=== PATIENT | male | born 2005 | race Hispanic/Latino ===

== ENCOUNTER 2024-11-12 10:13 | Emergency (ER) | payer MEDICAID, SELFPAY ==
[2024-11-12] VITALS (8 sets, daily range): BP systolic 118–168; BP diastolic 71–86; PULSE 71–97; RESP 12–18; TEMP 36.6; O2SAT 98–100
--- NOTE | ~2024-11-12 | XR_ITS ---
EXAM/PROCEDURE: XR chest 2V - 11/12/2024 11:32 CDT HISTORY: 18 years old Male with cp, PT STATES LT SIDE CHEST PAIN TECHNIQUE: Two view(s) of the chest. COMPARISON: None available. FINDINGS: LUNGS/ PLEURA: No focal consolidation. No appreciable pneumothorax or large pleural effusion. HEART/ MEDIASTINUM: Heart appears normal in size. BONES: No acute osseous abnormality. OTHER: Visualized upper abdomen is unremarkable. IMPRESSION: No acute process. Reviewed, dictated and finalized at location A. IMPRESSION: No acute process.
--- NOTE | 2024-11-12 10:14 | ECG_ITS ---
Test Date: 2024-11-12 10:28:01 Measurements Intervals [place] Rate: 87 P: 55 [place]: 171 QRS: 34 QRSD: 97 T: 25 QT: 355 QTc: 428 Interpretive Statements SINUS RHYTHM NONSPECIFIC ST ELEVATION IN DIFFUSE LEADS BORDERLINE ECG No previous ECG available for comparison Electronically Signed On 11-12-2024 10:41:20 CDT by Arnol Ornelas D.O.
[2024-11-12 10:42] LABS: Basophils Percent Auto 0.3 % (0.2-1.2); Eosinophils Absolute Auto 0.1 K/mm3 (0-0.3); Eosinophils Percent Auto 1.3 % (0-4.4); Hematocrit 49.4 % (42.0-52.0); Hemoglobin 16.5 g/dL (14.0-18.0); Immature Granulocyte Absolute 0.02 K/mm3 (0.00-0.031); Immature Granulocyte Percent A 0.3 % (0-0.5); Lymphocytes Absolute Auto 2.45 K/mm3 (0.9-3.2); Lymphocytes Percent Auto 40.1 % (18.3-44.2); Mean Corpuscular HGB Conc 33.4 g/dl (32-36); Mean Corpuscular Hemoglobin 30.3 pg (26-34); Mean Corpuscular Volume 90.6 fl (80-100); Mean Platelet Volume 10.1 fl (7.4-10.4); Monocytes Absolute Auto 0.6 K/mm3 (0.1-0.6); Monocytes Percent Auto 9.5 % (2.6-8.5); Neutrophils Percent Auto 48.5 % (45.5-73.1); Platelet Count Result 231 k/mm3 (150-375); Red Blood Count 5.45 M/mm3 (4.6-6.20); Red Cell Distribution Width 12.6 % (11.5-14.5); White Blood Count 6.1 K/mm3 (4.5-10.0)
[2024-11-12 10:55] LABS: Partial Thromboplastin Time 26.2 Seconds (22.3-36.8); Prothrombin Time 13.1 Seconds (11.1-14.7)
[2024-11-12 11:01] LABS: Alanine Aminotransferase 77 U/L (6-50); Albumin Level 4.7 g/dL (3.5-5.1); Alkaline Phosphatase 81 U/L (38-126); Anion Gap 9 mmol/L (4-12); Aspartate Amino Transferase 57 U/L (17-59); Bilirubin,Total 0.9 mg/dL (0.2-1.3); Blood Urea Nitrogen 15 mg/dL (9-20); Calcium 9.8 mg/dL (8.4-10.2); Carbon Dioxide 28 mmol/L (22-30); Chloride 103 mmol/L (98-107); Estimated CRCL calculation 102 ml/min; Estimated Glomerular Filt Rate > 60; Glucose 101 mg/dL (65-110); Lipase 49 U/L (23-300); Potassium 3.8 mmol/L (3.4-5.0); Sodium 140 mmol/L (137-145); Total Protein 8.4 g/dL (6.3-8.2)
[2024-11-12 11:12] LABS: Troponin I < 0.012 ng/mL (0.000-0.034)
--- NOTE | 2024-11-12 11:12 | PC.NURSE ---
Pt called 2 times for x-ray, no answer.
[2024-11-12 13:36] LABS: D Dimer < 0.27 ug/mL (<0.48)
--- NOTE | 2024-11-12 13:36 | ECG_ITS ---
Test Date: 2024-11-12 13:44:23 Measurements Intervals [place] Rate: 95 P: 54 [place]: 161 QRS: 45 QRSD: 92 T: 23 QT: 347 QTc: 436 Interpretive Statements SINUS RHYTHM NORMAL ECG Compared to ECG 11/12/2024 10:28:01 NO SIGNIFICANT CHANGE Electronically Signed On 11-12-2024 14:16:17 CDT by Arnol Ornelas D.O.
--- NOTE | 2024-11-12 13:36 | ED.CHESTPAIN ---
HPI - Chest Pain General Chief Complaint: Chest Pain Stated Complaint: chest pain, shortness of breath Time Seen by Provider: 11/12/24 12:02 Source: patient and RN notes reviewed Mode of arrival: ambulatory Limitations: no limitations History of Present Illness HPI narrative: This is a 18 year old male who presents for evaluation of palpitations and chest pain. He states that he has been having intermittent episodes of chest pain and palpitations for 1.5 weeks. HE reports he feels buzzing in his chest intermittently. He will also experience mid chest pain lasting a few seconds. He reports there is not exacerbating cause. HE also reports intermittent episodes of shortness of breath. He reports increased stressed and he thinks it may be causing his symptoms. He denies URI symptoms, cough, fever, calf pain. Denies travel. MD complaint: chest pain Onset (ago): week(s) Timing of current episode: episodic Onset: during rest Pain radiation: none Severity: mild Relieving factors: nothing Exacerbating factors: nothing Treatment prior to arrival: none Risk Factors Coronary artery disease risk factors: none Thoracic aortic dissection risk factors: none Related Data Allergies Allergy/AdvReac Type Severity Reaction Status Date / Time No Known Allergies Allergy Verified 11/12/24 11:22 [facility] Past Medical History Medical History (Updated 11/12/24 @ 14:14 by Jaclyn Grier MD) Patient denies medical problems Surgical History Surgical History (Updated 11/12/24 @ 13:40 by Jaclyn Grier MD) No pertinent past surgical history Social History Social History (Updated 11/12/24 @ 13:40 by Jaclyn Grier MD) Smoking status: Never smoker Alcohol intake: never Substance use: never Exam Const: General: no acute distress and alert Nutritional Appearance: well nourished Orientation/consciousness: patient oriented x3 HENMT: Head: normal to inspection Eyes: EOM: EOMs intact bilaterally Chest: Chest palpation & inspection: normal inspection of the chest and no tenderness Resp: Effort & Inspection: normal respiratory effort Auscultation: clear to auscultation bilaterally Cardio: Rate: regular rate Rhythm: regular rhythm Heart sounds: no murmurs GI: GI Palp: Yes Soft to palpation, No Tenderness to palpation present (GI), No Guarding due to palpation present (GI) and No Rigid due to palpation Auscultation: normal bowel sounds Skin: General skin exam: normal color Rashes: no rashes Wounds: no wounds Neuro: General: patient oriented x3, moves all extremities and CN's II-XI intact bilaterally Extrem: General: normal to inspection, no clubbing, cyanosis or edema and no pedal edema Psych: Mental Status: mental status grossly normal Affect: normal affect Attitude: cooperative Course Reevaluation(s) Reevaluation #1: I discussed with patient that labs are unremarkable. His chest pain may be due to his anxiety. I prescribed vistaril. I did consider pericarditis but no fever, no URI symptoms, no pericardial rub, no elevated wbc. He was given return precautions and will follow up with PCP Date: 11/12/24 Time: 13:30 Vital Signs Vital signs: Vital Signs Temperature 97.9 F 11/12/24 10:35 Pulse Rate 78 11/12/24 10:35 Respiratory Rate 16 11/12/24 10:35 Blood Pressure 157/82 H 11/12/24 10:35 Pulse Oximetry 100 11/12/24 10:35 Oxygen Delivery Room Air 11/12/24 10:35 Temperature 97.9 F 11/12/24 14:00 Pulse Rate 82 11/12/24 14:00 Respiratory Rate 18 11/12/24 14:00 Blood Pressure 134/86 11/12/24 14:00 Pulse Oximetry 100 11/12/24 14:00 Oxygen Delivery Room Air 11/12/24 11:19 MDM - Chest Pain Differential Diagnosis Differential diagnosis: Likely atypical chest pain, costochondritis, chest pain and biliary colic Lab Data Attestation: I reviewed the patient's lab results. 11/12/24 10:37 11/12/24 10:37 Labs: Lab Results 11/12/24 11/12/24 Range/Units 10:37 13:42 WBC 6.1 (4.5-10.0) K/mm3 RBC 5.45 (4.6-6.20) M/mm3 Hgb 16.5 (14.0-18.0) g/dL Hct 49.4 (42.0-52.0) % MCV 90.6 (80-100) fl MCH 30.3 (26-34) pg MCHC 33.4 (32-36) g/dl RDW 12.6 (11.5-14.5) % Plt Count 231 (150-375) k/mm3 MPV 10.1 (7.4-10.4) fl Immature Gran % (Auto) 0.3 (0-0.5) % Neut % (Auto) 48.5 (45.5-73.1) % Lymph % (Auto) 40.1 (18.3-44.2) % Garfield % (Auto) 9.5 H (2.6-8.5) % Eos % (Auto) 1.3 (0-4.4) % Baso % (Auto) 0.3 (0.2-1.2) % Lymph # (Auto) 2.45 (0.9-3.2) K/mm3 Garfield # (Auto) 0.6 (0.1-0.6) K/mm3 Eos # (Auto) 0.1 (0-0.3) K/mm3 Baso # (Auto) 0.0 (0.0-0.1) K/mm3 Abs Immat Gran (auto) 0.02 (0.00-0.031) K/mm3 Absolute Neuts (auto) 3.0 (1.3-6.7) K/mm3 Absolute Nucleated RBC 0.000 (0.0-0.012) K/mm3 Nucleated RBC % 0.0 (0.0-0.2) % PT 13.1 (11.1-14.7) Seconds INR 1.0 APTT 26.2 (22.3-36.8) Seconds D-Dimer < 0.27 (<0.48) ug/mL Sodium 140 (137-145) mmol/L Potassium 3.8 (3.4-5.0) mmol/L Chloride 103 (98-107) mmol/L Carbon Dioxide 28 (22-30) mmol/L Anion Gap 9 (4-12) mmol/L BUN 15 (9-20) mg/dL Creatinine 1.23 (0.7-1.3) mg/dL Estim Creat Clear Calc 102 ml/min Estimated GFR > 60 (59 - ) Glucose 101 (65-110) mg/dL Calcium 9.8 (8.4-10.2) mg/dL Total Bilirubin 0.9 (0.2-1.3) mg/dL AST 57 (17-59) U/L ALT 77 H (6-50) U/L Alkaline Phosphatase 81 (38-126) U/L Troponin I < 0.012 < 0.012 (0.000-0.034) ng/mL Total Protein 8.4 H (6.3-8.2) g/dL Albumin 4.7 (3.5-5.1) g/dL Lipase 49 (23-300) U/L ECG Data EKG #1: Attestation: I personally reviewed and interpreted this ECG as follows: ECG completion date: 11/12/24 ECG completion time: 10:28 Interpretation: mild j point elevation, no STEMI EKG Interpretation: normal rate, sinus rhythm and NL axis Discharge Plan Discharge Clinical Impression: Atypical chest pain Patient Disposition: Home Condition: Stable Instructions: Antibiotic Form, Chest Pain (ED) Additional Instructions: Today your lab test were unremarkable. I recommend that you follow up with your primary care provider. I have prescribed a medication for anxiety that you can try. You can also take ibuprofen 400 mg every 6 hours as needed for your pain. REturn to ER if your symptoms worsen. Patient Language: Cypriot Prescriptions: New hydroxyzine pamoate 50 mg capsule 50 mg PO BID PRN (Reason: anxiety) Qty: 10 0RF Follow-up/Referrals: PHYSICIAN,TOLL LINE INSPECTOR [Primary Care Provider] - George Sage MD [Physician] - Quality HEART score for chest pain patients History: slightly suspicious ECG: normal Age: < or = to 45 years Risk factors: no risk factors known Troponin: < or = to 1x normal limit Heart score: 0
[2024-11-12 14:13] LABS: Troponin I < 0.012 ng/mL (0.000-0.034)
== END 2024-11-12 14:28 | disposition home or self-care (01) ==
PROVIDERS: Emergency Medicine; Emergency Provider General Practice
DX: R07.89 Other chest pain (principal); R94.31 Abnormal electrocardiogram [ECG] [EKG]
CPT/HCPCS: 36415; 71046; 80053; 83690; 84484; 85025; 85380; 85610; 85730; 93005; 99284

== ENCOUNTER 2024-12-03 08:55 | Outpatient (CLI) | payer MEDICAID, SELFPAY ==
--- OUTSIDE RECORDS SUMMARY | 2024-12-03 09:00 | XMS_ITS | Clinical Summary ---
Author Organization [facility] Address [address] [place] [address] Care Team Providers Care [place]audeville Actor Name Role Phone James Hall MD Primary Care Provider [phone] Source Comments [facility],non-owned Affiliates and Associated Physician Practices is amultiple site organization consisting of ambulatory clinics and hospital sitesin [place], [place], [place] and [place]. This disclosure is being madepursuant to the Care Everywhere program and may not contain all information available regarding this patient. Last updated 18.[facility] Allergies No known active allergies Medications * Be aware that medications may not be up to date on this document. Alwaysverify current medications with the patient. No known medications Social History Tobacco Use Types Packs/Day Years Used Date Smoking Tobacco: Never Smokeless Tobacco: Never Sex and Gender Information Value Date Recorded Sex Assigned at Not on file Legal Sex Male 1:18 PM CDT Gender Identity Not on file Sexual Orientation Not on file Last Filed Vital Signs Vital Sign Reading Time Taken Comments Blood Pressure 122/80 02/28/2018 12:40 PM CDT Pulse 98 02/28/2018 12:40 PM CDT Temperature 36.9 C (98.5 F) 02/28/2018 12:40 PM CDT Respiratory Rate 19 02/28/2018 12:40 PM CDT Oxygen Saturation 98% 02/28/2018 12:40 PM CDT Inhaled Oxygen Concentration - - Weight 80.7 kg (178 lb) 02/28/2018 12:40 PM CDT Height 160 cm (5' 3) 02/28/2018 12:40 PM CDT Body Mass Index 31.53 02/28/2018 12:40 PM CDT Plan of Treatment Health Maintenance Due Date Last Done Comments HIV SCREENING 12/30/2018 HPV VACCINE (1 - Male 3-dose series) 12/30/2018 MENINGOCOCCAL (Group B) VACC INE SHARED DECISION-MAKING (1 of 2 - Standard) 2019 HEPATITIS C SCREENING 12/26/2021 DTAP/TDAP/TD VACCINES (1 - Tdap) 12/30/2022 HEPATITIS B VACCINE (1 of 3 - 19+ 3-dose series) 12/30/2022 COVID-19 VACCINE (1 - 2023-2 5 season) 2024 DEPRESSION SCREENING 05/19/2024 INFLUENZA VACCINE (#1) 2025 ZOSTER VACCINE (1 of 2) 12/30/2053 HIB VACCINE Aged Out No longer eligi ble based on patient's age to complete this topic MENINGOCOCCAL GROUPS A/C/Y/W VACCINE Aged Out No longer eligible b ased on patient's age to complete this topic PNEUMOCOCCAL VACCINE Aged Out No long er eligible based on patient's age to complete this topic Care Teams [place] Actor Relationship Specialty Start Date End Date James Hall MD [address] [place] [address] [address] [place] [address] PCP - General Family Medicine 10/18/13
[2024-12-03 10:35] LABS: Alanine Aminotransferase 66 U/L (6-50); Albumin Level 4.6 g/dL (3.5-5.1); Alkaline Phosphatase 72 U/L (38-126); Aspartate Amino Transferase 47 U/L (17-59); Bilirubin,Total 0.8 mg/dL (0.2-1.3); Cholesterol 206 mg/dL (0-200); HDL Direct 42 mg/dL; Hemoglobin A1C 5.4 % (<5.7); Total Protein 8.2 g/dL (6.3-8.2); Triglycerides 127 mg/dL (<150)
[2024-12-03 11:10] LABS: Thyroid Stimulating Hormone Reflex 1.710 uIU/mL (0.465-4.68)
== END 2024-12-03 08:56 | disposition home or self-care (01) ==
PROVIDERS: PCP Nurse Practitioner Family; Visit Provider Nurse Practitioner Family
DX: Z00.00 Encounter for general adult medical examination without abnormal findings (principal); Z13.220 Encounter for screening for lipoid disorders; Z76.89 Persons encountering health services in other specified circumstances; F41.9 Anxiety disorder, unspecified; E66.9 Obesity, unspecified; R74.01 Elevation of levels of liver transaminase levels; M79.602 Pain in left arm; M94.0 Chondrocostal junction syndrome [Tietze]; G47.00 Insomnia, unspecified; Z83.49 Family history of other endocrine, nutritional and metabolic diseases
CPT/HCPCS: 36415; 80061; 80076; 83036; 84443

== ENCOUNTER 2025-03-09 14:48 | Outpatient (CLI) | payer OTHER, SELFPAY ==
--- OUTSIDE RECORDS SUMMARY | 2009-03-15 03:15 | XMS_ITS | Continuity of Care Document ---
Author Organization [facility] Address [address] [place] [address] Phone Care Team Providers Care Hvac/R Instructor Name Role Phone Beck OD, Phani Unavailable Unavailable Procedures Procedure Date Eye Exam, New Patient Refraction Advance Directives Directive Yes / No Effective Date File Name No Information Encounters Encounter Description Practice Location Reason(s) For Visit Diagnoses Date Provider Providers Copied on Encounter [facility], [address], [place], [place], [id number], [place] tel:[phone] [address] [facility] No Information 8-200 9 Beck OD Phani. [address] , [address], [place], [address], [place]. tel:[phone] Family History Family Member Type Diagnosis Age At Onset No Information Payers Payer name Insurance type Covered constitution party ID Authoriza tion(s) Medicaid [facility] [id number] Social History Type Description Quantity Date Captured Comments Sex Male Smoking Status No Information Chief Complaint And Reason For Visit No Information Reason For Referral Reason For Referral No Information History Of Present Illness Encounter Date Complaint History Of Prese nt Illness No Information Functional Status Date Functional Assessmen t No Information Instructions Date Instruction Additional Infor mation No Information Assessments Type Assessment Date No Information Patient Care Teams Name Effective Dates (start - stop) Status Members No Information
--- NOTE | ~2025-03-09 | MR_ITS ---
EXAMINATION: MR brain/brain stem wo con DATE: 03/09/2025 16:17 INDICATION: Headache, unspecified. TECHNIQUE: Magnetic resonance imaging (MRI) of the brain and brainstem was performed without intravenous contrast. COMPARISON: None. FINDINGS: There is no intracranial hemorrhage, acute infarction, or abnormal intracranial mass lesion. The ventricles are normal in size. There is mucosal thickening in the paranasal sinuses. The orbits are normal. The mastoid air cells are normal. IMPRESSION: 1. Normal brain. Reviewed, dictated and finalized at location E. IMPRESSION: 1. Normal brain.
--- OUTSIDE RECORDS SUMMARY | 2025-03-09 19:03 | XMS_ITS | Clinical Summary ---
Author Organization [facility] Address [address] [place] [address] Care Team Providers Care Stacker Tender Name Role Phone James Hall MD Primary Care Provider [phone] Source Comments [facility],non-owned Affiliates and Associated Physician Practices is amultiple site organization consisting of ambulatory clinics and hospital sitesin [place], [place], [place] and [place]. This disclosure is being madepursuant to the Care Everywhere program and may not contain all information available regarding this patient. Last updated 18.[facility] Allergies No known active allergies Medications * [...] of 3 - 19+ 3-dose series) 12/30/2022 DEPRESSION SCREENING 05/19/2024 COVID-19 VACCINE (1 - 2023-2 5 season) 2025 INFLUENZA VACCINE (#1) 2025 ZOSTER VACCINE (1 of 2) 12/30/2053 HIB VACCINE Aged Out No longer eligi ble based on patient's age to complete this topic MENINGOCOCCAL GROUPS A/C/Y/W VACCINE Aged Out No longer eligible b ased on patient's age to complete this topic PNEUMOCOCCAL VACCINE Aged Out No long er eligible based on patient's age to complete this topic Care Teams Stacker Tender Relationship Specialty Start Date End Date James Hall MD [address] [place] [address] [address] [place] [address] PCP - General Family Medicine 10/18/13
== END 2025-03-09 14:49 | disposition home or self-care (01) ==
PROVIDERS: PCP Nurse Practitioner Family; Visit Provider Nurse Practitioner Family
DX: R51.9 Headache, unspecified (principal); R20.2 Paresthesia of skin; R26.89 Other abnormalities of gait and mobility
CPT/HCPCS: 70551

== ENCOUNTER 2025-04-08 10:00 | Outpatient (CLI) | payer OTHER, SELFPAY ==
--- NOTE | ~2025-04-08 | US_ITS ---
US abdomen limited Indication: R10.32 - Left lower quadrant pain Comparison: None Technique: Browning-scale and color Doppler images were obtained. Findings: Correlating with the palpable area there is no abnormal mass or mass effect, there is no increased flow IMPRESSION: Unremarkable exam Reviewed, dictated and finalized at location P. MODELING SPECIALIST IMPRESSION: Unremarkable exam
--- OUTSIDE RECORDS SUMMARY | 2025-04-08 09:25 | XMS_ITS | Clinical Summary ---
Author Organization [facility] Address [address] [place] [address] Care Team Providers Care Chief Librarian Extension Department Name Role Phone James Hall MD Primary Care Provider [phone] Source Comments [facility] [employer],non-owned Affiliates and Associated Physician Practices is amultiple site organization consisting of ambulatory clinics and hospital sitesin [place], [place], [place] and [place]. This disclosure is being madepursuant to the Care Everywhere program and may not contain all information available regarding this patient. Last updated 18.[facility] Allergies No known active allergies Medications * [...] DEPRESSION SCREENING 05/19/2024 COVID-19 VACCINE (1 - 2024-2 6 season) 2025 INFLUENZA VACCINE (#1) 2025 ZOSTER [...] age to complete this topic Care Teams Chief Librarian Extension Department Relationship Specialty Start Date End Date James Hall MD [address] [place] [address] [address] [place] [address] PCP - General Family Medicine 10/18/13
[2025-04-08 10:22] LABS: Add Urine Microscopic? NO; Appearance Urine Clear (Clear); Glucose Urine UA Negative (Negative); Leukocyte Esterase Ur Negative LEU/UL (Negative); Nitrate Urine Negative (Negative); Specific Grav Ur 1.023 (1.001-1.035)
[2025-04-08 10:35] LABS: Hematocrit 48.2 % (42.0-52.0); Hemoglobin 15.8 g/dL (14.0-18.0); Immature Granulocyte Percent A 0.5 % (0-0.5); Lymphocytes Absolute Auto 2.24 K/mm3 (0.9-3.2); Mean Corpuscular HGB Conc 32.8 g/dl (32-36); Mean Corpuscular Hemoglobin 29.6 pg (26-34); Mean Corpuscular Volume 90.4 fl (80-100); Nucleated Red Blood Cells Absolute Auto 0.000 K/mm3 (0.0-0.012); Nucleated Red Blood Cells Perc 0.0 % (0.0-0.2); Platelet Count Result 257 k/mm3 (150-375); Red Blood Count 5.33 M/mm3 (4.6-6.20); White Blood Count 7.9 K/mm3 (4.5-10.0)
[2025-04-08 10:47] LABS: Alanine Aminotransferase 98 U/L (6-50); Albumin Level 4.7 g/dL (3.5-5.1); Alkaline Phosphatase 80 U/L (38-126); Anion Gap 7 mmol/L (4-12); Aspartate Amino Transferase 58 U/L (17-59); Bilirubin,Total 0.9 mg/dL (0.2-1.3); Blood Urea Nitrogen 13 mg/dL (9-20); Calcium 9.4 mg/dL (8.4-10.2); Carbon Dioxide 28 mmol/L (22-30); Chloride 102 mmol/L (98-107); Estimated Glomerular Filt Rate > 60; Glucose 97 mg/dL (65-110); Potassium 3.7 mmol/L (3.4-5.0); Sodium 137 mmol/L (137-145); Total Protein 8.3 g/dL (6.3-8.2)
== END 2025-04-08 10:01 | disposition home or self-care (01) ==
PROVIDERS: PCP Nurse Practitioner Family; Visit Provider Nurse Practitioner Family
DX: R10.32 Left lower quadrant pain (principal); R22.2 Localized swelling, mass and lump, trunk; K58.2 Mixed irritable bowel syndrome
CPT/HCPCS: 36415; 76705; 80053; 81003; 85025

== ENCOUNTER 2025-05-05 08:18 | Outpatient (CLI) | payer OTHER, SELFPAY ==
--- NOTE | ~2025-05-05 | CT_ITS ---
EXAM/PROCEDURE: CT abdomen pelvis w con HISTORY: negative labs and ultrasound COMPARISON: None available. TECHNIQUE: IV contrast enhanced CT of abdomen and pelvis FINDINGS: The bowel gas pattern is nonobstructive with no free air free fluid or pneumatosis. Appendix and aorta both normal size. Several mesenteric lymph nodes are present but no bulky mesenteric or retroperitoneal lymphadenopathy or masses. Gallbladder pancreas spleen stomach and adrenal glands as well as liver appears normal. Urinary bladder appears normal for technique. Bones intact. Lung bases clear and heart size normal. Visualized retroperitoneal soft tissues unremarkable. IMPRESSION: No focal acute process to explain source of patient's symptoms. Several mesenteric lymph nodes noted which could be associated with mesenteric adenitis. Reviewed, dictated and finalized at location A. OR ORACLE ADF DEVELOPER IMPRESSION: No focal acute process to explain source of patient's symptoms. Sev eral mesenteric lymph nodes noted which could be associated with mesenteric kush nitis.
--- OUTSIDE RECORDS SUMMARY | 2025-05-05 08:31 | XMS_ITS | Clinical Summary ---
Author Organization [facility] Address [address] [place] [address] Care Team Providers Care Heating Element Winder Name Role Phone James Hall MD Primary Care Provider [phone] Source Comments [email or web address],non-owned Affiliates and Associated Physician Practices is amultiple site organization consisting of ambulatory clinics and hospital sitesin [place], [place], [place] and [place]. This disclosure is being madepursuant to the Care Everywhere program and may not contain all information available regarding this patient. Last updated 18.[email or web address] Allergies No known active allergies Medications * [...] age to complete this topic Care Teams Heating Element Winder Relationship Specialty Start Date End Date James Hall MD [address] [place] [address] [address] [place] [address] PCP - General Family Medicine 10/18/13
== END 2025-05-05 08:19 | disposition home or self-care (01) ==
PROVIDERS: PCP Nurse Practitioner Family; Visit Provider Nurse Practitioner Family
DX: R10.32 Left lower quadrant pain (principal)
CPT/HCPCS: 74177; Q9967